=== PATIENT | female | born 1965 | race Caucasian/White ===

== ENCOUNTER 2020-03-13 15:14 | Outpatient (CLI) | payer MEDICARE, SELFPAY ==
--- NOTE | 2020-03-13 15:27 | XR_ITS ---
WS: [id number] SCREENING DEXA SCAN [employer] CLINICAL INFORMATION: AGE RELATED OSTEOPOROSIS WITHOUT CURRENT PATHOLOGICAL FRACTU COMPARISON: None. FINDINGS: The L1-L4 bone mineral density measures 1.058 g/cm2. This corresponds to a T score score of -1.0 and Z score of 0.0. Right femoral neck bone mineral density measures 0.722. This corresponds to a T score of -2.3 and Z s core of -1.5. XR/XR DEXA axial skeleton* 19207 IMPRESSION: Osteopenia in the lumbar spine and right femoral neck. Osteopenia approaching o steoporosis in the right femoral neck. Patient's FRAX calculated 10 year probability for major osteoporotic fracture i s 17.2 % and osteoporotic hip fracture is 3.6%.
== END 2020-03-13 15:15 | disposition home or self-care (01) ==
LOC: RADWPI 15:23
PROVIDERS: PCP Family Medicine; Visit Provider Nurse Practitioner
DX: M81.0 Age-related osteoporosis without current pathological fracture (principal); M85.80 Other specified disorders of bone density and structure, unspecified site
CPT/HCPCS: 77080